=== PATIENT | female | born 2000 | race American Indian/Alaskan Native ===

== ENCOUNTER 2021-03-21 14:13 | Outpatient (CLI) | payer MEDICAID ==
[2021-03-21] MEDS ORDERED: LACTATED RINGERS 500 ML IV ONE (16:03)
[2021-03-21 19:17] VITALS: BP 110/59
[2021-03-21] MEDS ORDERED: LACTATED RINGERS 1,000 ML ONE (21:02)
[2021-03-21 21:21] LABS: Bacteria,Urine 1+ /HPF (Negative); Bilirubin,Urine NEG (Negative); Blood,Urine NEG (Negative); Color,Urine Yellow (Yellow); Mucus,Urine FEW /HPF; Protein,Urine <15 mg/dL mg/dL (Negative); Urobilinogen,Urine < 2.0 mg/dL (<2.0)
--- NOTE | 2021-03-28 15:27 | Ultrasound Report ---
ULTRASOUND OBSTETRIC LIMITED ULTRASOUND BIOPHYSICAL PROFILE INDICATION / CLINICAL INFORMATION: BPP. well-being. Assess for placental abruption. Clinical Gestational Age (GA) in weeks, days: 33, 0 TECHNIQUE: Transabdominal. COMPARISON: None available. FINDINGS: BREATHING MOVEMENT = 2 GROSS BODY MOVEMENT = 2 TONE = 2 QUALITATIVE AMNIOTIC FLUID VOLUME = 2 TOTAL BIOPHYSICAL SCORE = 8/8 HEART RATE (beats per minute): 138 PRESENTATION: Cephalic. ADDITIONAL FINDINGS: Placenta is posterior fundal and grade 1. No placental abruption. IMPRESSION: 1. Biophysical Score = 8/8 2. No placental abruption. Signer Name: Ana Whitman MD Signed: 03/22/2021 12:53 AM Workstation Name: [id number]
== END 2021-03-21 22:45 | disposition home or self-care (01) ==
LOC: TRG 14:13 → APU 14:14 → TRG 22:45
PROVIDERS: ATTEND Obstetrics & Gynecology
DX: O26.853 Spotting complicating pregnancy, third trimester (principal); Z3A.33 33 weeks gestation of pregnancy
CPT/HCPCS: 59025; 76815; 76819; 81001; J7120; 96360

== ENCOUNTER 2021-05-10 13:07 | Outpatient (CLI) | payer MEDICAID ==
[2021-05-10 13:29] VITALS: BP 128/76
--- NOTE | 2021-05-10 15:02 | Ultrasound Report ---
Limited OB Ultrasound Biophysical profile HISTORY: well being. TECHNIQUE: Grayscale and color imaging performed. COMPARISON: Limited OB ultrasound and BPP exam from 03/21/2021 FINDINGS: There is a single viable intrauterine gestation with cephalic presentation and heart rate of 148 bpm. The MARYAM is 10 cm. On biophysical profile, the fetus received a score of 2 out of 2 for breathing, posture/tone, and MARYAM , and movement. Total score was 8 out of 8. IMPRESSION: 1. Single viable intrauterine gestation as above. 2. Normal BPP. Signer Name: Justo Pantoja MD Signed: 05/10/2021 2:59 PM Workstation Name: [id number]
== END 2021-05-10 16:09 | disposition home or self-care (01) ==
LOC: TRG 13:07 → APU 13:08 → TRG 16:09
PROVIDERS: ATTEND Obstetrics & Gynecology
DX: Z34.93 Encounter for supervision of normal pregnancy, unspecified, third trimester (principal); Z3A.40 40 weeks gestation of pregnancy
CPT/HCPCS: 59025; 76815; 76819

== ENCOUNTER 2021-05-13 13:41 | Outpatient (CLI) | payer MEDICAID ==
[2021-05-13 16:00] VITALS: BP 129/72
--- NOTE | 2021-05-13 17:56 | Ultrasound Report ---
ULTRASOUND OBSTETRIC LIMITED ULTRASOUND BIOPHYSICAL PROFILE INDICATION / CLINICAL INFORMATION: BPP/MARYAM. COMPARISON: None available. FINDINGS: BREATHING MOVEMENT = 2 GROSS BODY MOVEMENT = 2 TONE = 2 QUALITATIVE AMNIOTIC FLUID VOLUME = 2 TOTAL BIOPHYSICAL SCORE = 8/8 HEART RATE (beats per minute): 143 AMNIOTIC FLUID INDEX (cm) = 8.0 (normal = 7-24 cm) PRESENTATION: Cephalic. ADDITIONAL FINDINGS: None. IMPRESSION: 1. Biophysical Score = 8/8 Signer Name: Dom Vazquez MD Signed: 05/13/2021 5:52 PM Workstation Name: [id number]
== END 2021-05-13 16:30 | disposition home or self-care (01) ==
LOC: TRG 13:41 → APU 13:42 → TRG 16:30
PROVIDERS: ATTEND Obstetrics & Gynecology
DX: Z34.93 Encounter for supervision of normal pregnancy, unspecified, third trimester (principal); Z3A.40 40 weeks gestation of pregnancy
CPT/HCPCS: 76815; 76819